=== PATIENT | female | born 1950 | race Caucasian/White ===

== ENCOUNTER → 2017-08-27 | Outpatient (CLI) | payer OTHER | LOC: CIMAGING 10:01 | DX: J98.4 Other disorders of lung (principal) | CPT/HCPCS: 71046-PO ==

== ENCOUNTER → 2017-08-31 | Outpatient (CLI) | payer OTHER | LOC: FIMAGING 10:02 | PROVIDERS: ATTEND Allergy & Immunology Allergy | DX: K21.9 Gastro-esophageal reflux disease without esophagitis (principal) ==

== ENCOUNTER → 2017-09-07 | Outpatient (CLI) | payer OTHER | LOC: CIMAGING 07:51 | PROVIDERS: ATTEND Allergy & Immunology Allergy | DX: I70.0 Atherosclerosis of aorta (principal); Z87.01 Personal history of pneumonia (recurrent); Z87.09 Personal history of other diseases of the respiratory system | CPT/HCPCS: 71250-PO ==